=== PATIENT | female | born 1950 | race Caucasian/White ===

== ENCOUNTER 2022-06-06 11:15 | Emergency (ER) | payer BC ==
[~2022-06-06] VITALS: Ht 157.5 cm; Wt 54.4 kg
--- NOTE | 2022-06-06 11:46 | NUR ---
TECH AT BEDSIDE FOR WOUND CARE. PT SEEN BY DR RUIZ FOR EVAL.
--- NOTE | 2022-06-06 12:08 | NUR ---
PT TAKEN TO RADIOLOGY FOR CT
[2022-06-06] MEDS ORDERED: TDAP [DIPH/PERTUSSIS/TET] 0.5 ML VIAL IM ONE ×2 (12:10→12:30)
--- NOTE | 2022-06-06 12:15 | NUR ---
PT RETURNED FROM RADIOLOGY
--- NOTE | 2022-06-06 13:12 | NUR ---
[facility] CALLED, ETA 60 MIN PER LAYLA.
--- NOTE | 2022-06-06 14:03 | NUR ---
EMT AT BEDSIDE TO PICKUP PT. ENDORSEMENT GIVEN.
--- NOTE | 2022-06-06 14:18 | NUR ---
Patient discharged to home via gurney in stable condition, accompanied by 2 toll mechanic. Written and verbal after care instructions given. Patient verbalizes understanding of instruction.
[2022-06-06 14:19] VITALS: BP 118/70
== END 2022-06-06 14:19 | disposition home or self-care (01) ==
LOC: ER 11:17
DX: S01.01XA Laceration without foreign body of scalp, initial encounter (principal); Z98.890 Other specified postprocedural states; S09.90XA Unspecified injury of head, initial encounter; V49.49XA Driver injured in collision with other motor vehicles in traffic accident, initial encounter; Y93.89 Activity, other specified; Y92.413 State road as the place of occurrence of the external cause; Y99.8 Other external cause status
CPT/HCPCS: 70450-TC; 90715

== ENCOUNTER 2022-06-18 10:57 | Emergency (ER) | payer BC ==
[~2022-06-18] VITALS: Ht 157.5 cm; Wt 56.7 kg
[2022-06-18 10:57] VITALS: BP 119/88
[2022-06-18] MEDS ORDERED: TDAP [DIPH/PERTUSSIS/TET] 0.5 ML VIAL IM ONE (11:34)
[2022-06-18] MEDS: TDAP [DIPH/PERTUSSIS/TET] 0.5 ML VIAL IM ONE (11:37)
--- NOTE | 2022-06-18 12:20 | NUR ---
emt at bedside for wound care
--- NOTE | 2022-06-18 12:28 | NUR ---
Patient discharged to home in stable condition. Written and verbal after care instructions given. Patient verbalizes understanding of instruction.
== END 2022-06-18 12:29 | disposition home or self-care (01) ==
LOC: ER 11:00
DX: Z48.02 Encounter for removal of sutures (principal); S40.021A Contusion of right upper arm, initial encounter; F31.9 Bipolar disorder, unspecified; W01.0XXA Fall on same level from slipping, tripping and stumbling without subsequent striking against object, initial encounter; Y93.89 Activity, other specified; Y92.89 Other specified places as the place of occurrence of the external cause; Y99.8 Other external cause status
CPT/HCPCS: 90715